=== PATIENT | male | born 1975 | race African-American/Black ===

== ENCOUNTER 2018-01-31 20:05 | Emergency (ER) | payer SELFPAY ==
[~2018-01-31] VITALS: Ht 172.7 cm; Wt 74.8 kg
[2018-01-31] MEDS ORDERED: cloNIDine HCL 0.1 MG TABLET PO ONE (20:45)
[2018-01-31 20:50] VITALS: BP 175/85
--- NOTE | 2018-01-31 20:55 | PHYS DOC ---
Adult General Chief Complaint Chief Complaint: DRUG ABUSE HPI HPI Patient is a 42 year old male who presents with anxiety after he states that he ingested PCP. The patient went to the triage desk stating that he felt like he was going to . He states that he has a relative that is currently on a heart monitor and he is agitated and stating that he needs to leave by 9:30 PM to be with his relative. Review of Systems Review of Systems Unable to obtain ROS. The patient is agitated and refuses to answer questions. . Current Medications Current Medications Current Medications Medications (Trade) Dose Ordered Sig/Aruna Start Time Stop Time Status Last Admin Dose Admin Clonidine HCl (Catapres) 0.1 mg 1X ONCE 01/31/18 20:45 01/31/18 20:46 DC 01/31/18 20:45 0.1 MG Allergies Allergies Allergies Coded Allergies Type Severity Reaction Last Updated Verified No Known Drug Allergies 01/31/18 No Physical Exam Physical Exam The patient refuses a physical exam. The patient's vital signs do show that he has hypertension. He states that he will take medication to reduce his hypertension. He refuses to allow blood draws or any other exam. Current Patient Data Vital Signs Vital Signs Date Time Temp Pulse Resp B/P (MAP) Pulse Ox O2 Delivery O2 Flow Rate FiO2 01/31/18 20:50 85 16 175/85 (115) 100 Room Air 01/31/18 20:07 99.6 99.6 EKG EKG [] Radiology/Procedures Radiology/Procedures [] Course & Med Decision Making Course & Med Decision Making Pertinent Labs and Imaging studies reviewed. (See chart for details) []The patient was given a dose of clonidine in the emergency department for his hypertension. He then left the facility AGAINST MEDICAL ADVICE. Staff Physician Addendum: I was working in the ER during the course of this patient's visit. I was available for consultation as needed, but I was not directly involved in the care of this patient. Dragon Disclaimer Dragon Disclaimer This electronic medical record was generated, in whole or in part, using a voice recognition dictation system. 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
== END 2018-01-31 20:50 | disposition left against medical advice (07) ==
LOC: ER 20:05
DX: T40.995A Adverse effect of other psychodysleptics [hallucinogens], initial encounter (principal); F41.9 Anxiety disorder, unspecified; R45.1 Restlessness and agitation; I10 Essential (primary) hypertension; Y92.89 Other specified places as the place of occurrence of the external cause
CPT/HCPCS: 99282; 99283

== ENCOUNTER 2020-05-07 02:27 | Emergency (ER) | payer SELFPAY ==
[~2020-05-07] VITALS: Ht 172.7 cm; Wt 74.8 kg
[2020-05-07 03:24] LABS: BARBITURATES NEG (NEG); BENZODIAZEPINES NEG (NEG); CANNABINOIDS NEG (NEG); COCAINE NEG (NEG); METHADONE NEG (NEG); OPIATES NEG (NEG); PHENCYCLIDINE POS (NEG)
[2020-05-07 03:33] LABS: AMPHETAMINE/METHAMPHETAMINE NEG (NEG)
--- NOTE | 2020-05-07 06:11 | PHYS DOC ---
Past Medical History Past Medical History: Asthma (ROMAN BLANKENSHIP MD) Past Surgical History: Other Additional Past Surgical Histo: JAW SURGERY (ROMAN BLANKENSHIP MD) Smoking Status: Current Every Day Smoker Alcohol Use: Heavy Drug Use: Phencyclidine (ROMAN BLANKENSHIP MD) Adult General Chief Complaint Chief Complaint: SUBSTANCE ABUSE HPI HPI Patient is a 45 year old male with a known past medical history of asthma and polysubstance abuse presents emergency department with presumed intoxication. EMS state they were called by a friend with the patient was noted to be acutely altered and confused. Patient does admit to using PCP today also states that he drinks daily. Denies any fall, injury, nausea, vomiting, dizziness or lightheadedness. (ROMAN BLANKENSHIP MD) Review of Systems Review of Systems Constitutional: Denies fever or chills [] Eyes: Denies change in visual acuity, redness, or eye pain [] HENT: Denies nasal congestion or sore throat [] Respiratory: Denies cough or shortness of breath [] Cardiovascular: No additional information not addressed in HPI [] GI: Denies abdominal pain, nausea, vomiting, bloody stools or diarrhea [] : Denies dysuria or hematuria [] Musculoskeletal: Denies back pain or joint pain [] Integument: Denies rash or skin lesions [] Neurologic: Denies headache, focal weakness or sensory changes [] Endocrine: Denies polyuria or polydipsia [] All other systems were reviewed and found to be within normal limits, except as documented in this note. (ROMAN BLANKENSHIP MD) Allergies Allergies Allergies Coded Allergies Type Severity Reaction Last Updated Verified No Known Drug Allergies 01/31/18 No (LORI SMITH DO) Physical Exam Physical Exam Constitutional: Well developed, well nourished, no acute distress, non-toxic appearance. [] HENT: Normocephalic, atraumatic, bilateral external ears normal, oropharynx mo ist, no oral exudates, nose normal. [] Eyes: PERRLA, EOMI, conjunctiva normal, no discharge. Horizontal nystagmus Neck: Normal range of motion, no tenderness, supple, no stridor. [] Cardiovascular:Heart rate regular rhythm, no murmur [] Lungs & Thorax: Bilateral breath sounds clear to auscultation [] Abdomen: Bowel sounds normal, soft, no tenderness, no masses, no pulsatile masses. [] Skin: Warm, dry, no erythema, no rash. [] Back: No tenderness, no CVA tenderness. [] Extremities: No tenderness, no cyanosis, no clubbing, ROM intact, no edema. [] Neurologic: Confused and disoriented, normal motor function, normal sensory function, no focal deficits noted. [] Psychologic: Affect normal, judgement normal, mood normal. [] (ROMAN BLANKENSHIP MD) Current Patient Data Vital Signs Vital Signs Date Time Temp Pulse Resp B/P (MAP) Pulse Ox O2 Delivery O2 Flow Rate FiO2 05/07/20 07:33 77 136/90 (105) 98 Room Air 05/07/20 02:30 99.2 15 99.2 (LORI SMITH DO) Lab Values Laboratory Tests Test 05/07/20 02:45 Urine Opiates Screen Neg (NEG) Urine Methadone Screen Neg (NEG) Urine Barbiturates Neg (NEG) Urine Phencyclidine Screen Pos (NEG) Urine Amphetamine/Methamphetamine Neg (NEG) Urine Benzodiazepines Screen Neg (NEG) Urine Cocaine Screen Neg (NEG) Urine Cannabinoids Screen Neg (NEG) Urine Ethyl Alcohol Pos (NEG) (LORI SMITH DO) EKG EKG [] (ROMAN BLANKENSHIP MD) Radiology/Procedures Radiology/Procedures [] (ROMAN BLANKENSHIP MD) Course & Med Decision Making Course & Med Decision Making Pertinent Labs and Imaging studies reviewed. (See chart for details) 45-year-old male presenting the emergency department for presumed acute PCP intoxication. Will obtain alcohol level and urine drug screen and reevaluate (ROMAN BLANKENSHIP MD) Course & Med Decision Making Patient was awake alert oriented, he was no longer intoxicated. Patient denies suicidal ideation. Patient would like to be discharged home. (LORI SMITH DO) Dragon Disclaimer Dragon Disclaimer This electronic medical record was generated, in whole or in part, using a voice recognition dictation system. (ROMAN BLANKENSHIP MD) Departure Departure Impression: Primary Impression: Substance abuse Additional Impression: Alcohol abuse Disposition: 01 DC HOME SELF CARE/HOMELESS Condition: IMPROVED Referrals: NO PCP (PCP) follow up with your PCP NEEDED Patient Instructions: Alcohol Problems, Substance Abuse-Brief Problem Qualifiers ROMAN BLANKENSHIP MD May 07, 2020 06:11 LORI SMITH DO May 07, 2020 07:50
[2020-05-07 07:33] VITALS: BP 136/90
== END 2020-05-07 08:07 | disposition home or self-care (01) ==
LOC: ER 02:27
DX: F19.10 Other psychoactive substance abuse, uncomplicated (principal); F10.20 Alcohol dependence, uncomplicated; Y90.9 Presence of alcohol in blood, level not specified; J45.909 Unspecified asthma, uncomplicated; F17.200 Nicotine dependence, unspecified, uncomplicated
CPT/HCPCS: 36415; 80307; 99285-25